=== PATIENT | male | born 1990 | race Caucasian/White ===

== ENCOUNTER 2016-11-24 21:11 | Emergency (ER) | payer MEDICAID ==
[2016-11-24 21:18] VITALS: BP 141/83; PULSE 90; RESP 16; TEMP 98.1; O2SAT 98
[2016-11-24] MEDS ORDERED: IBUPROFEN 600 MG TAB PO ONE ×2 (21:28→21:32)
--- NOTE | 2016-11-24 21:50 | DX ---
Left Wrist 4 Views including a Navicular View. Clinical Indications: Pain following trauma. Findings: There is an oblique minimally displaced fracture involving the distal diaphysis of the left radius. The fracture does not definitely extend to the articular surface. No other fracture is seen. No radiopaque foreign body is identified. Impression: Minimally displaced fracture of the distal left radius.
--- NOTE | 2016-11-24 22:24 | EDPHY ---
General Narrative: CHIEF COMPLAINT: Left wrist pain HISTORY OF PRESENT ILLNESS: snowboarding this evening when he fell, landing on outstretched arm behind him. Sudden onset of severe pain in the distal radius portion of the left wrist. No snuffbox tenderness. No hand, elbow or shoulder tenderness. No injury elsewhere. No head injury or loss of conscious. Moderate to severe pain. Worse with palpation or movement. Associated with some paresthesia of the left thumb and index finger. No wrist drop. No motor deficits. Worse with any palpation or movement. Improved with rest. No other associated complaints or modifying factors. PRIOR ORTHO INJURIES: Nonsurgical injuries ESTABLISHED ORTHOPEDIST: none REVIEW OF SYSTEMS: Ten systems reviewed and are negative unless otherwise noted in the HPI EXAMINATION General Appearance: Alert, no distress Head: normocephalic, atraumatic Eyes: Pupils equal and round, no conjunctival pallor or injection ENT, Mouth: Mucous membranes moist. Uvula midline. No lesions Neck: Normal inspection. No bony tenderness or crepitus. Respiratory: No dyspnea or retractions. No distress Cardiovascular: Pulses normal throughout With symmetric radial pulses at 2+. Brisk cap refill In all 10 fingers. Neurological: A&O . Strength is 5/5 in all limbs. Reported paresthesias of the left thumb and index finger circumferentially. No wrist drop. Skin: Warm and dry, no rash Extremities: Left upper extremity: Significant tender to palpation over the left distal radius. No snuffbox tenderness. There is crepitus. Range of motion difficult to test secondary to pain. There is no edema. Compartments are soft. Two point sensation retained. Full flexion-extension without wrist drop Psychiatric: Mood and affect normal DIFFERENTIAL DIAGNOSES: Including but not limited to sprain, strain, fracture, dislocation MDM: 9:40 p.m. snowboard injury with fall on outstretched hand. Does have a distal radius, contacted fracture. I do not appreciate a scaphoid fracture by my interpretation. I am awaiting the official read by Radiology. We will refer to ortho for definitive care. 10:20 p.m. notified by [facility] that the patient is declining the sugar-tong splint. We will thus place him in a volar splint as he will not consent to any other splint. Discharged home stable condition, neurovascularly intact. Pain medication as needed. Ice and elevate the extremity. Nonweightbearing to that arm until seen by orthopedist for definitive care. Return to ER for worsening pain, numbness, tingling, cyanosis, pallor or wrist drop. He is comfortable with this plan and understands the implications of these signs and symptoms. ED Precautions: Worsening pain. Erythema, edema, cyanosis, pallor, Wrist drop, paresthesia or anesthesia. SUPERVISION: This patient was independently evaluated without the aide of supervising physician. - History Smoking Status: Former smoker - Objective Vital Signs: Initial Vital Signs Temperature (C) 98.1 F 11/24/16 21:16 Heart Rate 90 11/24/16 21:16 Respiratory Rate 16 11/24/16 21:16 Blood Pressure 141/83 H 11/24/16 21:16 O2 Sat (%) 98 11/24/16 21:16 O2 Delivery Mode Room Air Allergies/Adverse Reactions: No Known Allergies Allergy (Verified 10/09/16 17:10) Home Medications: Medication Instructions Recorded PRILOSEC 11/24/16 oxyCODONE HCL/ACETAMINOPHEN 1 each PO Q4-6PRN PRN #15 tablet 11/24/16 [Percocet 5-325 mg Tablet] Medications Given: Discontinued Medications Ibuprofen (Motrin) 600 mg PO EDNOW ONE Stop: 11/24/16 21:33 Last Admin: 11/24/16 21:33 Dose: 600 mg Departure - Departure Disposition: Home, Routine, Self-Care Clinical Impression: Fracture of distal end of left radius Qualifiers: Encounter type: initial encounter Fracture type: closed Fracture morphology: unspecified fracture morphology Qualifier Code: (S52.502A) Unspecified fracture of the lower end of left radius, initial encounter for closed fracture Sprain of left wrist Qualifiers: Encounter type: initial encounter Qualifier Code: (S63.502A) Unspecified sprain of left wrist, initial encounter Condition: Good Instructions: Arm Fracture in Adults (ED), Wrist Fracture in Adults (ED) Additional Instructions: follow-up with Orthopedics for definitive care. Return to ER for worsening pain, numbness, tingling, cyanosis, pallor, wrist drop Referrals: [place] Moya MD [Primary Care Provider] - As per Instructions Sergio Becker MD [Medical Doctor] - As per Instructions Prescriptions: oxyCODONE HCL/ACETAMINOPHEN [Percocet 5-325 mg Tablet] 1 each PO Q4-6PRN PRN # 15 tablet PRN Reason: Pain, Moderate
[2016-11-24] MEDS ORDERED: OXYCODONE/APAP 5/325MG PREPACK#4 BTL TAKEHOME ONE ×2 (22:25→22:35)
== END 2016-11-24 22:36 | disposition home or self-care (01) ==
DX: S52.502A Unspecified fracture of the lower end of left radius, initial encounter for closed fracture (principal); S63.502A Unspecified sprain of left wrist, initial encounter; Z87.891 Personal history of nicotine dependence; V00.311A Fall from snowboard, initial encounter; Y93.23 Activity, snow (alpine) (downhill) skiing, snowboarding, sledding, tobogganing and snow tubing